=== PATIENT | male | born 2000 | race Caucasian/White ===

== ENCOUNTER 2022-12-28 13:50 | Emergency (ER) | payer MEDICAID ==
[~2022-12-28] VITALS: Ht 188 cm; Wt 90.7 kg
[2022-12-28 14:05] VITALS: BP 121/70; PULSE 81; RESP 17; TEMP 98; O2SAT 98
== END 2022-12-28 14:20 | disposition left against medical advice (07) ==
LOC: MED 13:50
DX: R09.89 Other specified symptoms and signs involving the circulatory and respiratory systems (principal); R51.9 Headache, unspecified; Z53.21 Procedure and treatment not carried out due to patient leaving prior to being seen by health care provider
CPT/HCPCS: 99281